=== PATIENT | male | born 1970 | race Caucasian/White ===

== ENCOUNTER 2017-02-24 21:31 | Emergency (ER) | payer OTHER ==
--- NOTE | 2017-03-02 07:45 | ER ---
ADMIT: 02/24/2017 RM/LOC: ER [facility] MR#: [id number] [address] [id number] [place]NAVI ESCAMILLAVega [place]es [address] [place] [address] Emergency Room Report SEX: M AGE: 46 : 1970 DATE: 02/24/2017 CHIEF COMPLAINT: Satartia, right elbow. HISTORY OF PRESENT ILLNESS: A pleasant 46-year-old white male, who presents 2 hours after he was fishing, he got a fishhook stuck in his right elbow. Denies any other injuries, noted tingling or numbness distally, otherwise well, no past medical history, healthy ya. COURSE IN THE EMERGENCY ROOM: The patient was seen and examined. He is afebrile, in no acute distress. He does have a fishhook that has been clipped in his right elbow. Neurovascularly intact distally. I did initially attempt to disengage the fernanda, had to use #11 blade scalpel to slightly enlarge the entry point, fishhook was then easily removed. He was given a dose of Keflex 500 mg p.o. prior to discharge. IMPRESSION: Satartia, right elbow. DISPOSITION: The patient was started on Keflex 500 mg p.o. b.i.d. for 5 days. Should keep this clean and dry, wash daily with warm soapy water. Tetanus was updated today. Certainly present to Dr. Grover Machuca for followup with any signs and symptoms of infections. Questions were sought and answered to the best of my ability to the patient's satisfaction. Discharged in stable condition. JUSTIN Davalos / Arjun Hatfield MD / bayron JOB #: [id number] CC: Arjun Hatfield MD, Attending Physician Grover Machuca MD, Family Physician
== END 2017-02-25 00:15 | disposition home or self-care (01) ==
LOC: ER 21:31
PROC: 0HCDXZZ Extirpation of Matter from Right Lower Arm Skin, External Approach (ICD-10-PCS; principal; 2017-02-25)
DX: S50.351A Superficial foreign body of right elbow, initial encounter (principal); Z23 Encounter for immunization; W26.8XXA Contact with other sharp object(s), not elsewhere classified, initial encounter; Y93.89 Activity, other specified